=== PATIENT | male | born 1985 | race Asian ===

== ENCOUNTER 2019-07-08 17:35 | Inpatient (IN) | payer BC ==
--- NOTE | 2019-07-08 17:50 | ED ---
Psychiatric Complaint - HPI Summary HPI Summary: This patient is a 33 year old male accompanied by his presenting to [facility] with a chief complaint of alcohol relapse. The patient states his father 2 months ago and has not been coping well. Pt states he is a recovering alcoholic sober for 2 years and for the past 4 days has had a relapse. He states he has had "4 750 ml whiskey bottles over 4 days" pt states he wants help. He states he was having suicidal ideation and "that is why i asked my to bring me". He states over the last 2 months he had multiple small relapses that were a couple drinks a day but did not start drinking heavily again since 4 days ago. He states he has equated drinking with self-harm and has stated he wanted to mentally tune out but has not necessarily tuned out from life. His states he has stated he has not wanted to live anymore and that he just wants to sleep. He has a Hx of depression and takes medication for this and ADHD. He denies hallucinations and HI. He has a Hx of latent Hepatitis C. He states he has had SI but really does not want to and that he cares about living. He states his primary concern is the withdrawals from drinking so much alcohol. He states he did not ever drink this month before. He has recently been taking his medications but did not take his anti-depressants over the last 2 days. The last time he drank was 30 minutes ago. - History Of Current Complaint Chief Complaint: EDSubstanceAbuse Time Seen by Provider: 07/08/19 17:44 Hx Obtained From: Patient, Family/Yard Pilot Onset/Duration: Gradual Onset, Lasting Days, Lasting Weeks, Still Present Aggravating Factor(s): Alcohol Use Related History: Positive For: Prior Psychiatric Issues Has Suicidal: Reports: Thoughts - Allergies/Home Medications Allergies/Adverse Reactions: Allergies Allergy/AdvReac Type Severity Reaction Status Date / Time No Known Allergies Allergy Verified 07/08/19 19:59 PMH/Surg Hx/FS Hx/Imm Hx Cardiovascular History: Denies: Hx Coronary Artery Disease Respiratory History: Denies: Hx Asthma Infectious Disease History: Yes Infectious Disease History: Reports: Hx Hepatitis Denies: Traveled Outside the [place] in Last 30 Days - Family History Known Family History: Positive: Non-Contributory - Social History Alcohol Use: Recovering alcoholic, recently relapsed Hx Substance Use: Yes Substance Use Type: Reports: Marijuana Review of Systems Negative: Fever Psychological: Other - Suicidal ideation, relapse All Other Systems Reviewed And Are Negative: Yes Physical Exam - Summary Physical Exam Summary: Constitutional: Well-developed, Well-nourished, Alert. (-) Distressed Skin: Warm, Dry HENT: Normocephalic; Atraumatic Eyes: Conjunctiva normal Neck: Musculoskeletal ROM normal neck. (-) JVD, (-) Stridor, (-) Tracheal deviation Cardio: Rhythm regular, rate normal, Heart sounds normal; Intact distal pulses; The pedal pulses are 2+ and symmetric. Radial pulses are 2+ and symmetric. (-) Murmur Pulmonary/Chest wall: Effort normal. (-) Respiratory distress, (-) Wheezes, (-) Rales Abd: Soft, (-) tenderness, (-) Distension, (-) Guarding, (-) Rebound Musculoskeletal: (-) Edema Lymph: (-) Cervical adenopathy Neuro: Alert, Oriented x3 Psych: Mood and affect Normal Triage Information Reviewed: Yes Vital Signs On Initial Exam: Initial Vitals Temp Pulse Resp BP Pulse Ox 97.5 F 142 18 137/113 100 07/08/19 17:37 07/08/19 17:37 07/08/19 17:37 07/08/19 17:37 07/08/19 17:37 Vital Signs Reviewed: Yes Diagnostics - Vital Signs Vital Signs Temp Pulse Resp BP Pulse Ox 07/08/19 17:37 97.5 F 142 18 137/113 100 - Laboratory Result Diagrams: 07/08/19 18:00 07/08/19 18:00 Lab Statement: Any lab studies that have been ordered have been reviewed, and results considered in the medical decision making process. - EKG 1847 Cardiac Rate: Tachycardia EKG Rhythm: Sinus Tachycardia - 114 BPM Summary of EKG Findings: Biphasic T-waves in V3 and V4 Re-Evaluation - Re-Evaluation First Eval Re-Evaluation Time: 19:34 Comment: HR was in the high 110s. 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 They have contacted his sobriety nurse and they will see him this week. Second Eval Re-Evaluation Time: 20:58 Comment: Patients HR is still around 120 BPM. Patient will be admitted to the hospital. Course/Dx - Course Course Of Treatment: Patient is here seeking treatment for his alcohol addiction. Patient was sober for 2 years with a recent relapse following the of his father. Upon arrival, patient was tachycardic to the 140s. Patient was a O 3 with no evidence of confusion on examination or tremors. Patient had motor performed which showed hemoconcentration and evidence of dehydration. Patient is given 2 L of IV fluids with moderate improvement in his heart rate to 120. Patient is likely tachycardic from dehydration as he does not exhibit any other signs of withdrawal. Patient was given 1 mg of Ativan to see if it helped his tachycardia but it did not. Given his severe dehydration, patient was admitted to the hospital. - Differential Dx/Clinical Impression Provider Diagnosis: Dehydration, High anion gap metabolic acidosis, Alcohol addiction, Anxiety, Tachycardia - Physician Notifications Discussed Care Of Patient With: Essie Alfred - Hospitalist Time Discussed With Above Provider: 21:05 Instructed by Provider To: Admit As Inpatient Discharge ED - Sign-Out/Discharge Documenting (check all that apply): Patient Departure - Admission Patient Received Moderate/Deep Sedation with Procedure: No - Discharge Plan Condition: Stable Disposition: ADMITTED TO [facility] Referrals: No Primary Care Phys,NOPCP [Primary Care Provider] - - Billing Disposition and Condition Condition: STABLE Disposition: Admitted to [facility] - Attestation Statements Document Initiated by Andreea: Yes Documenting Scribe: Marlon Gonzales Provider For Whom Andreea is Documenting (Include Credential): Richmond Palomino MD Scribe Attestation: Marlon Taylor scribed for Richmond Palomino MD on 07/08/19 at 2117. Scribe Documentation Reviewed: Yes Provider Attestation: The documentation as recorded by the Marlon antonio accurately reflects the service I personally performed and the decisions made by me, Richmond Palomino MD Status of Scribe Document: Viewed
[2019-07-08 18:09] LABS: ABS Basophils 0.1 10^3/ul (0-0.2); ABS Eosinophils 0.1 10^3/ul (0-0.6); ABS Lymphocytes 3.5 10^3/ul (1.0-4.8); ABS Monocytes 0.7 10^3/ul (0-0.8); ABS Neutrophils 6.2 10^3/ul (1.5-7.7); Eosinophil % 1.2 %; Hematocrit 55 % (42-52); Hemoglobin 19.5 g/dL (14.0-18.0); Lymphocyte % 32.9 %; Mean Corpuscular HGB Conc 35 g/dL (31-36); Mean Corpuscular Hemoglobin 29 pg (27-31); Mean Corpuscular Volume 83 fL (80-94); Mean Platelet Volume 7.7 fL (7.4-10.4); Nucleated Red Blood Cells % 0.3; Platelet Count 360 10^3/uL (150-450); Red Blood Count 6.64 10^6 /uL (4.18-5.48); Red Cell Distribution Width 14 % (10-15); White Blood Count 10.6 10^3/uL (3.5-10.8)
[2019-07-08 18:23] LABS: Albumin 4.8 g/dL (3.2-5.2); Albumin/Globulin Ratio 1.7 (1-3); BUN/Creatinine Ratio 16.5 (8-20); Calcium 9.5 mg/dL (8.6-10.3); EGFR African American 138.4 (>60); EGFR Non-African American 114.4 (>60); Globulin 2.9 g/dL (2-4); Potassium 3.5 mmol/L (3.5-5.0); Total Bilirubin 1.2 mg/dL (0.2-1.0); Total Protein 7.7 g/dL (6.4-8.9)
[2019-07-08 18:29] LABS: Urine Appearance Clear; Urine Bacteria Absent (Absent); Urine Bilirubin Negative (Negative); Urine Blood 1+ (Negative); Urine Color Yellow; Urine Glucose Negative (Negative); Urine Ketones Trace (Negative); Urine Nitrite Negative (Negative); Urine Protein 3+(>=500 mg/dL) (Negative); Urine Red Blood Cell 1+(3-5/hpf) (Absent); Urine Specific Gravity 1.009 (1.010-1.030); Urine Urobilinogen Negative (Negative); Urine White Blood Cell Trace(0-5/hpf) (Absent)
[2019-07-08] MEDS ORDERED: NS 0.9% 1000 ML** 1,000 ML IV ONE ×2 (18:44)
[2019-07-08 18:46] LABS: Urine Benzodiazepine Screen None Detected (None Detect); Urine Opiates Screen None Detected (None Detect)
[2019-07-08] MEDS ORDERED: LORazepam INJ* 2 MG/ML 1 ML VIAL IV PUSH ONE (20:09)
[2019-07-08] MEDS ORDERED: Lorazepam PYXIS KEY PRN (20:09)
[2019-07-08] MEDS ORDERED: Lorazepam PYXIS KEY ONE (20:46)
[2019-07-08] MEDS ORDERED: Acetaminophen TAB* 325 MG PO PRN (21:36)
[2019-07-08] MEDS ORDERED: Al Hydrox/Mg Hydrox/Simet LIQ* 30 ML UDC PO PRN (21:36)
[2019-07-08] MEDS ORDERED: Melatonin 3 MG TAB PO PRN (21:52)
[2019-07-08 22:13] LABS: Magnesium 2.2 mg/dL (1.9-2.7)
[2019-07-08] MEDS ORDERED: Lactated Ringers 1000 ML Bag* 1,000 ML IV SCH (23:00)
[2019-07-08] MEDS: LORazepam TAB(*) 1 MG PO SCH (23:33)
[2019-07-09] MEDS: NS 0.9% 1000 ML** 1,000 ML IV SCH ×3 (00:12→22:07)
--- NOTE | 2019-07-09 00:12 | HP ---
HISTORY AND PHYSICAL: DATE OF ADMISSION: PRIMARY CARE PHYSICIAN: None. HEALTHCARE PROXY: His , Eryn. CODE STATUS: Full. CHIEF COMPLAINT: A 4-day alcohol binge. HISTORY OF PRESENT ILLNESS: Mr. Cline is a 33-year-old man with a history of untreated HCV and alcohol use disorder in remission, who presents with 4 days of "binge drinking alcohol." The patient reports that he was in his usual state of healthy until approximately 2 months ago when his father in [place]. For the last 2 months, he has been in [place] with his mother helping to take care of her. 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 However, since leaving his mother, he has experienced tremendous anxiety, as she depended on him for a lot of daily activities. So, since returning to [place], he has been drinking approximately one 750 mL bottle of whisky per day. Besides anxiety, he has experienced intermittent heartburn and reports that this morning he vomited clear yellowish liquid. He denies hematemesis, coffee ground emesis, or diarrhea. He expresses desire to stop binge drinking alcohol and return to abstinence, so he brought himself to the emergency room for further treatment. He denies shortness of breath, chest pain , palpitations, constipation, lower extremity swelling, or jaundice. He does report decreased appetite since he has been drinking significant amounts of liquor. Otherwise, a complete 10-point review of systems was performed and pertinent positives and negatives are listed in his HPI. PAST MEDICAL HISTORY: 1. Hepatitis C. The patient reports that it was not treated because he has "not yet experienced complications". He thinks he contracted this infection through maternal- transmission. 2. Major depressive disorder. 3. ADHD. HOME MEDICATIONS: 1. Vilazodone 20 mg daily. 2. Lisdexamfetamine 30 mg daily, although the patient reports he has not taken this yet this summer. ALLERGIES: No known drug allergies. FAMILY HISTORY: Significant for multiple families with alcohol abuse. His father this year of hepatocellular carcinoma as a complication of chronic hepatitis B infection. SOCIAL HISTORY: The patient lives with his , Eryn, who is an RN at [employer]. 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 The patient quit smoking tobacco in 2018. He has a history of alcohol use disorder, but had quit drinking until now back in 2017. He denies other recreational drugs. PHYSICAL EXAM: GENERAL: He is a well-appearing man, in no acute distress, who is alert and interactive. No slurred speech. Does not appear anxious although he received Ativan in the emergency room. VITAL SIGNS: Temperature 97.5, heart rate 120, blood pressure 148/94, respiratory rate 18, oxygen saturation 99% on room air. HEENT: OP clear. Moist mucous membranes. Negative for tongue fasciculations. NECK: No JVD. Supple. LUNGS: Clear to auscultation bilaterally. HEART: Tachycardic, regular rhythm. No murmurs, gallops, or rubs. ABDOMEN: Soft, nontender, nondistended. No hepatomegaly. No fluid waves. BACK: No CVA tenderness. EXTREMITIES: Warm and well perfused without evidence of edema. No hand tremor. DIAGNOSTIC STUDIES AND IMAGING: CBC significant for elevated hemoglobin at 19.5, with normal MCV. BMP notable for anion gap. No lactate drawn. LFTs significant only for mildly elevated total bilirubin of 1.2. UA: Significant for ketones and trace rbc's. Tox: Significant for marijuana and alcohol serum of 303. EKG: Sinus tachycardia, 114. ASSESSMENT AND PLAN: Mr. Cline is a 33-year-old man with hepatitis C and alcohol use disorder, who was presenting in the context of psychosocial stressors with relapse of alcohol intake over the last 4 days. He was found in the emergency room to have tachycardia and signs of dehydration. So, he is being admitted for IV fluids and monitoring for alcohol withdrawal. 1. Alcohol use disorder. The patient is not exhibiting signs of alcohol withdrawal at this time, although he did receive lorazepam in the emergency room. He will be admitted under [facility] protocol and started on IV maintenance fluids given likely dehydration per labs and history of recent vomiting with poor p.o. The patient declined social work referral and reports that he has a good support system at home and thinks that he can abstain from alcohol after discharge. 2. Tachycardia, likely from dehydration, alcohol use, and anxiety. The patient has already improved with 2 L of fluid. We will continue on maintenance fluids. Check TSH. EKG was normal. 3. Hepatitis C. The patient reports his physician in [place] states he does not need treatment until he is exhibiting complications. We will check a hepatitis C RNA in the morning and can plug the patient into care for treatment in [place] if positive. There are no signs of hepatitis at this time. 4. Major depressive disorder. The patient reports that he has not taken his antidepressants in several days and does not need to take it tonight while admitted for observation. 5. Attention deficit hyperactivity disorder. The patient has not taken medicine this summer, so I will not continue while admitted. 6. DVT prophylaxis. The patient is ambulatory and low risk. 7. FEN: The patient can eat a regular diet and will be maintained on normal saline until after morning lab draw. 8. Code status: The patient is a full code. TIME SPENT: Approximately 60 minutes was spent on admission of this patient, more than half of which was spent at bedside for interview and exam. [id number]/[facility] #: [id number] DONALD
[2019-07-09] MEDS ORDERED: Metoprolol Tartrate TAB* 25 MG PO ONE (03:46)
[2019-07-09 04:26] LABS: TSH (Thyroid Stimulating Horm) 0.89 mcIU/mL (0.34-5.60)
[2019-07-09 05:57] LABS: ABS Eosinophils 0.2 10^3/ul (0-0.6); ABS Lymphocytes 2.4 10^3/ul (1.0-4.8); ABS Monocytes 0.8 10^3/ul (0-0.8); ABS Neutrophils 6.4 10^3/ul (1.5-7.7); Eosinophil % 1.8 %; Hematocrit 45 % (42-52); Hemoglobin 15.2 g/dL (14.0-18.0); Lymphocyte % 24.3 %; Mean Corpuscular HGB Conc 34 g/dL (31-36); Mean Corpuscular Hemoglobin 29 pg (27-31); Mean Corpuscular Volume 84 fL (80-94); Mean Platelet Volume 7.3 fL (7.4-10.4); Nucleated Red Blood Cells % 0.3; Platelet Count 271 10^3/uL (150-450); Red Blood Count 5.34 10^6 /uL (4.18-5.48); Red Cell Distribution Width 14 % (10-15); White Blood Count 9.8 10^3/uL (3.5-10.8)
[2019-07-09 06:12] LABS: BUN/Creatinine Ratio 18.3 (8-20); Calcium 8.1 mg/dL (8.6-10.3); EGFR African American 156.6 (>60); EGFR Non-African American 129.4 (>60); Magnesium 1.6 mg/dL (1.9-2.7); Potassium 3.6 mmol/L (3.5-5.0)
[2019-07-09] MEDS ORDERED: Magnesium Sulfate 2 GM IV* 2 GM/50 ML BAG IVPB ONE (07:24)
[2019-07-09] MEDS: Thiamine TAB* 100 MG TAB PO SCH (08:22)
[2019-07-09] MEDS: Multivitamins/Minerals TAB PO SCH (08:22)
[2019-07-09] MEDS: Folic Acid TAB* 1 MG PO SCH (08:22)
--- NOTE | 2019-07-09 08:33 | PN ---
Subjective Date of Service: 07/09/19 Interval History: Pt is feeling ok. He is feeling quite warm and sweaty. He is not tremulous at this time. He has no other complaints. His states he typically is belligerent when he is in alcohol withdrawal. This admission, he asked to be brought to the hospital for care. Objective Active Medications: Acetaminophen (Tylenol Tab*) 975 mg PO Q8H PRN PRN Reason: Pain - Mild to Moderate Al Hydrox/Mg Hydrox/Simethicone (Maalox Plus*) 30 ml PO Q6H PRN PRN Reason: INDIGESTION Diazepam (Valium Tab(*)) 2.5 mg PO Q8H [facility] Folic Acid (Folvite Tab*) 1 mg PO DAILY [facility] Last Admin: 07/09/19 08:22 Dose: 1 mg Sodium Chloride (Ns 0.9% 1000 Ml) 1,000 mls @ 125 mls/hr IV PER RATE [facility] Last Admin: 07/09/19 08:22 Dose: 125 mls/hr Lorazepam (Ativan Tab(*)) 0 - 6 mg PO .PER [facility] PROTOCOL [facility]; Protocol Last Admin: 07/08/19 23:33 Dose: 3 mg Melatonin (Melatonin) 3 mg PO BEDTIME PRN PRN Reason: SLEEP Last Admin: 07/09/19 00:02 Dose: 3 mg Multivitamins/Minerals (Theragran/Minerals Tab*) 1 tab PO DAILY [facility] Last Admin: 07/09/19 08:22 Dose: 1 tab Thiamine HCl (Vitamin B-1 Tab*) 100 mg PO DAILY [facility] Last Admin: 07/09/19 08:22 Dose: 100 mg Vital Signs - 8 hr 07/09/19 07/09/19 07/09/19 01:10 02:58 03:10 Temperature 97.7 F Pulse Rate 129 128 Respiratory 16 20 Rate Blood Pressure 146/85 (mmHg) O2 Sat by Pulse 96 Oximetry 07/09/19 07/09/19 04:13 05:07 Temperature Pulse Rate 123 96 Respiratory Rate Blood Pressure 142/89 (mmHg) O2 Sat by Pulse Oximetry Oxygen Devices in Use Now: None Appearance: Young male sitting up in bed, NAD Eyes: No Scleral Icterus Ears/Nose/Mouth/Throat: Mucous Membranes Moist Respiratory: Symmetrical Chest Expansion and Respiratory Effort, Clear to Auscultation Cardiovascular: NL Sounds; No Murmurs; No JVD, No Edema, - - mildly tachycardic , regular Abdominal: NL Sounds; No Tenderness; No Distention Extremities: No Clubbing, Cyanosis Skin: No Nodules or Sclerosis Neurological: Alert and Oriented x 3, - - no tremor Result Diagrams: 07/09/19 05:46 07/09/19 05:46 Assess/Plan/Problems-Billing Mr Cline is a 33 yo M who has a h/o alcohol use disorder who relapsed 5 days ago and presented to the ER to safely go through alcohol withdrawal. - Patient Problems (1) Alcohol withdrawal Current Visit: Yes Status: Acute Code(s): F10.239 - ALCOHOL DEPENDENCE WITH WITHDRAWAL, UNSPECIFIED SNOMED Code(s): 675410143 Comment: Pt is scoring 9 on the WAM protocol, previously related to tachycardia and HTN. Will add valium 2.5mg po q8hr for longer acting coverage. He has never had a withdrawal seizure or DTs. Continue scoring q4hr. Administer ativan as needed. Continue thiamine and MVI. (2) DVT prophylaxis Current Visit: Yes Status: Acute Code(s): Z29.9 - ENCOUNTER FOR PROPHYLACTIC MEASURES, UNSPECIFIED SNOMED Code(s): 356384209 Comment: ambulation (3) Full code status Current Visit: Yes Status: Acute Code(s): Z78.9 - OTHER SPECIFIED HEALTH STATUS SNOMED Code(s): 649238055
[2019-07-09] MEDS: LORazepam TAB(*) 1 MG PO SCH ×3 (08:46→19:24)
[2019-07-09] MEDS: Diazepam TAB(*) 5 MG PO SCH ×2 (09:33→18:08)
[2019-07-09] MEDS: CMCS:Vilazodone (NF) 40 MG TAB PO SCH (10:21)
[2019-07-10] MEDS: Diazepam TAB(*) 5 MG PO SCH ×2 (01:25→09:22)
--- NOTE | 2019-07-10 08:43 | PN ---
Subjective Date of Service: 07/10/19 Interval History: Pt is feeling ok. He states he generally is feeling good but has continued to have significant sweating. He is interested in getting home as soon as possible. Objective Active Medications: Acetaminophen (Tylenol Tab*) 975 mg PO Q8H PRN PRN Reason: Pain - Mild to Moderate Al Hydrox/Mg Hydrox/Simethicone (Maalox Plus*) 30 ml PO Q6H PRN PRN Reason: INDIGESTION Diazepam (Valium Tab(*)) 2.5 mg PO Q8H [facility] Last Admin: 07/10/19 01:25 Dose: 2.5 mg Folic Acid (Folvite Tab*) 1 mg PO DAILY [facility] Last Admin: 07/09/19 08:22 Dose: 1 mg Sodium Chloride (Ns 0.9% 1000 Ml) 1,000 mls @ 125 mls/hr IV PER RATE [facility] Last Admin: 07/09/19 22:07 Dose: 125 mls/hr Lorazepam (Ativan Tab(*)) 0 - 6 mg PO .PER [facility] PROTOCOL [facility]; Protocol Last Admin: 07/09/19 19:24 Dose: 2 mg Melatonin (Melatonin) 3 mg PO BEDTIME PRN PRN Reason: SLEEP Last Admin: 07/09/19 00:02 Dose: 3 mg Multivitamins/Minerals (Theragran/Minerals Tab*) 1 tab PO DAILY [facility] Last Admin: 07/09/19 08:22 Dose: 1 tab Thiamine HCl (Vitamin B-1 Tab*) 100 mg PO DAILY [facility] Last Admin: 07/09/19 08:22 Dose: 100 mg Vilazodone HCl (Viibryd (Nf)) 40 mg PO DAILY [facility] Last Admin: 07/09/19 10:21 Dose: 40 mg Vital Signs - 8 hr 07/10/19 07/10/19 07/10/19 01:25 03:15 06:03 Temperature 97.8 F Pulse Rate 101 Respiratory 16 18 16 Rate Blood Pressure 159/102 (mmHg) O2 Sat by Pulse 100 Oximetry 07/10/19 07:15 Temperature 97.4 F Pulse Rate 89 Respiratory 16 Rate Blood Pressure 145/94 (mmHg) O2 Sat by Pulse 100 Oximetry Oxygen Devices in Use Now: None Appearance: Young male sitting up in bed, NAD Eyes: No Scleral Icterus Ears/Nose/Mouth/Throat: Mucous Membranes Moist Respiratory: Symmetrical Chest Expansion and Respiratory Effort, Clear to Auscultation Cardiovascular: NL Sounds; No Murmurs; No JVD, No Edema, - - mildly tachycardic but regular Abdominal: NL Sounds; No Tenderness; No Distention Extremities: No Clubbing, Cyanosis Skin: No Nodules or Sclerosis Neurological: Alert and Oriented x 3 Result Diagrams: 07/09/19 05:46 07/09/19 05:46 Microbiology and Other Data: Microbiology 07/08/19 18:13 Urine Culture - Final Urine No Growth (<1,000 CFU/mL) Assess/Plan/Problems-Billing Mr Cline is a 33 yo M who has a h/o alcohol use disorder who relapsed 5 days ago and presented to the ER to safely go through alcohol withdrawal. - Patient Problems (1) Alcohol withdrawal Current Visit: Yes Status: Acute Code(s): F10.239 - ALCOHOL DEPENDENCE WITH WITHDRAWAL, UNSPECIFIED SNOMED Code(s): 446833045 Comment: Pt has not scored on the WAM to receive ativan since 1900 last evening. He is mildly tachycardic currently but otherwise is showing no signs of withdrawal. He was started on standing valium and this likely is helping. May be able to consider d/c home with his monitoring (she is a RN) and tapering on the valium. Before making this decision I want to follow his HR and discuss with his . (2) DVT prophylaxis Current Visit: Yes Status: Acute Code(s): Z29.9 - ENCOUNTER FOR PROPHYLACTIC MEASURES, UNSPECIFIED SNOMED Code(s): 083623052 Comment: ambulation (3) Full code status Current Visit: Yes Status: Acute Code(s): Z78.9 - OTHER SPECIFIED HEALTH STATUS SNOMED Code(s): 715448349
[2019-07-10] MEDS: Folic Acid TAB* 1 MG PO SCH (09:22)
[2019-07-10] MEDS: Multivitamins/Minerals TAB PO SCH (09:22)
[2019-07-10] MEDS: Thiamine TAB* 100 MG TAB PO SCH (09:22)
[2019-07-10] MEDS: CMCS:Vilazodone (NF) 40 MG TAB PO SCH (09:22)
[2019-07-10 15:48] VITALS: BP 137/84
--- NOTE | 2019-07-10 19:25 | DS ---
DISCHARGE SUMMARY: DATE OF ADMISSION: 07/08/19 DATE OF DISCHARGE: 07/10/19 PRIMARY CARE PROVIDER: To be established at [facility]. PRINCIPAL DIAGNOSIS: Alcohol withdrawal. SECONDARY DIAGNOSES: 1. Depression. 2. Attention deficit hyperactivity disorder. DISCHARGE MEDICATIONS: 1. Viibryd 40 mg p.o. daily. 2. Diazepam 2 mg p.o. on the night of discharge, then 2 mg t.i.d. x1 day, the 2 mg b.i.d. x2 days, and 2 mg daily x2 days. 3. Vyvanse 30 mg p.o. daily (the patient has not restarted). 4. Dexedrine 10 mg p.o. daily (the patient has not been taking). HOSPITAL COURSE: Mr. Cline is a 33-year-old male who has a history of alcoholism, in remission since 2016, who relapsed after the of his father. He was drinking 750 mL of whiskey daily. He asked his to bring him to the hospital for evaluation and treatment as he felt his heart was "pounding out of chest." The patient was admitted to safely go through alcohol withdrawal. On presentation, his alcohol level was 303. The patient was initially scoring around 9 on the WAM protocol and receiving p.r.n. Ativan. He was started on standing Valium to help with the withdrawal process. Overall, he is much improved. He is no longer feeling significant withdrawal symptoms. He has been scored on the WAM protocol, but is not scoring high enough to receive Ativan. The patient's heart rate is still mildly tachycardic running in the 90s to low 100 range, though this has markedly improved from prior. At this point, it is felt the patient is stable and safe for discharge home. He will continue on a Valium taper over the next 5 days. FOLLOWUP CONCERNS: The patient is being discharged to home today, 07/10/19. Activity level is as tolerated. Diet is regular. Condition on discharge is stable. TIME SPENT: Twenty minutes was spent discharging this patient. [id number]/[facility] #: [id number] [facility]
--- NOTE | 2019-07-10 20:09 | PN ---
Hospitalist Progress Note Date of Service: 07/10/19 called by Nursing assembly supervisor reporting that she was contacted by Eryn ( patient's ) that they were unable to the pepper picker the patient's prescription because the pharmacy was closed due to the holiday. Spoke to Eryn on the phone and confirmed that she was unable to pepper picker the patients prescription. Spoke to Dr. López who confirmed that the patient would need to have a prescription for Valium this evening. Spoke to inpatient pharmacy and will write a prescription for Valium 5 mg one tablet. to be dispensed tonight. patient is to take 1/2 tablet every 8 hours.
== END 2019-07-10 17:20 | disposition home or self-care (01) | DRG 775 ==
LOC: ED 17:35 → MED 21:36 → OBSVTOIN 07-09 14:49
PROVIDERS: ADMIT Internal Medicine; ATTEND Hospitalist
DX: F10.239 Alcohol dependence with withdrawal, unspecified (principal); Y90.8 Blood alcohol level of 240 mg/100 ml or more; B19.20 Unspecified viral hepatitis C without hepatic coma; F32.9 Major depressive disorder, single episode, unspecified; E86.0 Dehydration; R00.0 Tachycardia, unspecified; F90.9 Attention-deficit hyperactivity disorder, unspecified type; Z79.899 Other long term (current) drug therapy; Z81.1 Family history of alcohol abuse and dependence; Z80.0 Family history of malignant neoplasm of digestive organs; Z87.891 Personal history of nicotine dependence
CPT/HCPCS: 36415; 80048; 80053; 80307; 80320; 81003; 81015; 83735; 84443; 85025; 87086; 87522; 93005; 99284; A9270-GY; G0480; J2060; J3475